=== PATIENT | female | born 1995 | race Caucasian/White ===

== ENCOUNTER 2020-10-28 17:29 | Emergency (ER) | payer OTHER, SELFPAY | END 2020-10-28 19:36 | disposition left against medical advice (07) | PROVIDERS: Emergency Provider Emergency Medicine | DX: N93.9 Abnormal uterine and vaginal bleeding, unspecified (principal) ==

== ENCOUNTER 2020-11-04 21:18 | Emergency (ER) | payer OTHER, SELFPAY ==
--- NOTE | ~2020-11-04 | US_ITS ---
EXAMINATION: ULTRASOUND PELVIC, COMPLETE CLINICAL INFORMATION: Status post one week ago. Now with vaginal bleeding.. Concern for retained products of conception. COMPARISON: None. TECHNIQUE: Transabdominal imaging. Color Doppler exam performed. No spectral Doppler performed. FINDINGS: UTERUS: There is mixed echogenic material within the endometrial cavity at the lower uterine segment. On color Doppler there is no vascular flow within this material. This is therefore likely clot and not retained products of conception. Uterus measures 12.7 x 4.1 x 7.5 cm. Uterus is retroverted.. ADNEXA: Ovarian vascularity:Vascularity demonstrated in the ovaries bilaterally with color Doppler only. Right Ovary: Unremarkable. 2.6 x 1.4 x 1.1 cm. Volume 2 mL Left Ovary: Unremarkable. 2.7 x 2.5 x 2 cm. Volume 7 mL Cul-de-sac: No Fluid US/US OB limited IMPRESSION: Mixed echogenic material in the lower uterine segment endometrial cavity. This demonstrates no vascular flow and is therefore likely due to clot and not retained products of conception.
[2020-11-04 21:26] VITALS: BP 110/69; BP 113/68; PULSE 76; PULSE 84; RESP 15; TEMP 37.3; O2SAT 100; BMI 25.4
--- NOTE | 2020-11-04 21:58 | ED.FEMALEGU ---
HPI - Female Genitourinary General Chief complaint: Abdominal Pain Stated complaint: ABD PAIN,VAG BLEED S/P MEDICAL 5 DAYS AGO Time Seen by Provider: 11/04/20 21:57 Source: patient Mode of arrival: ambulatory Limitations: no limitations History of Present Illness HPI Narrative: Patient status post MTP for 10 weeks of 5 days ago complaining of lower abdominal pain and increase vaginal bleeding for last 5 hours patient been changing pad almost every hour passing clots with lower abdominal cramps Related Data Previous Rx's Medication Instructions Recorded ferrous sulfate 325 mg PO DAILY #30 tab 11/04/20 tranexamic acid 1,300 mg PO BID #8 tab 11/04/20 Allergies Allergy/AdvReac Type Severity Reaction Status Date / Time No Known Allergies Allergy Unverified 04/02/20 16:28 [No Known Allergies*] Review of Systems Review of Systems: Constitutional : No Weight loss, No Fever, No Chills ENT/Mouth : No sore throat, No Rhinorrhea Eyes: No Eye Pain, No Swelling Cardiovascular : No Chest Pain, no palpitations Respiratory : No Cough, No Sputum, no shortness of breath Gastrointestinal : no Nausea, No Vomiting, No Diarrhea, +abdominal Pain, no black stools Genitourinary : No Dysuria, No Urinary Frequency Musculoskeletal : No joint pain, No Myalgias, No Joint Swelling Skin : No Skin Lesions, No rash Neuro : No Weakness, No Numbness, No Dizziness, No Headache Psych : No Anxiety/Panic, No Depression Heme/Lymph: No Bruising, No Lymphadenopathy Endocrine : No Polyuria, No Polydipsia All other systems reviewed and are negative PMFSH Past Medical History Medical History delivery delivered Surgical History [place] teeth removed Social History Social History Smoking Status: Current every day smoker Use of substances other than those prescribed or required for medical reasons: No Advance Directives: No Advance Directives Information Provided: Yes Physical Exam Vital Signs: Vital Signs: Last Vital Signs Temp 98.9 F 11/04/20 22:55 Pulse 91 11/04/20 22:55 Resp 18 11/04/20 22:55 BP 106/68 11/04/20 22:55 Pulse Ox 99 11/04/20 22:55 Body Mass Index 25.4 Appearance: Alert. Oriented X3. No acute distress. Eyes: Pupils equal, round and reactive to light. ENT: Pharynx normal. Neck: Normal inspection. Neck supple. CVS: Normal heart rate and rhythm. Pulses normal. Respiratory: No respiratory distress. Breath sounds normal. Abdomen: Soft, mild tenderness suprapubic area no rebound tenderness or guarding Bowel sounds are present, no mass palpable, no CVA tenderness Skin: Skin warm and dry. Normal skin color. Normal skin turgor. Extremities: No lower extremity edema. Neuro: Oriented X 3. No motor deficit. No sensory deficit. MDM - Female Genitourinary MDM Narrative Medical decision making narrative: Patient with MTP with vaginal bleeding ultrasound without any retained products of conception bleeding has slowed down now will advised the patient to follow up with patient transport orderly Lab Data Attestation: I reviewed the patient's lab results. Result diagrams: 11/04/20 22:43 11/04/20 22:43 Labs: Lab Results 11/04/20 11/04/20 Range/Units 22:43 22:43 WBC 13.4 H (4.8-10.8) X10*3/uL RBC 3.03 L (4.20-5.50) X10*6/uL Hgb 8.9 L (12.0-16.0) g/dl Hct 27.5 L (37-47) % MCV 90.8 (80-98) fL MCH 29.4 (27.0-33.0) pg MCHC 32.4 (31.0-35.0) g/dl RDW 14.4 (11.0-16.0) % Plt Count 360 (160-400) X10*3/uL MPV 9.7 (9.4-12.3) fL Immature Gran % (Auto) 0.3 (0.0-0.4) % Neut % (Auto) 83.3 H (45-73) % Lymph % (Auto) 11.5 L (20-40) % [place]ferro % (Auto) 4.0 (2-11) % Eos % (Auto) 0.7 (0-4) % Baso % (Auto) 0.2 (0-2) % Lymph # (Auto) 1.5 (1.2-4.9) X10*3/uL [place]ferro # (Auto) 0.5 (0.1-1.2) X10*3/uL Eos # (Auto) 0.1 (0.0-0.4) X10*3/uL Baso # (Auto) 0.0 (0.0-0.2) X10*3/uL Abs Immat Gran (auto) 0.04 H (0.00-0.03) X10*3/uL Absolute Neuts (auto) 11.2 H (2.0-8.3) X10*3/uL Absolute Nucleated RBC 0.000 (0.0-0.012) X10*3/uL Nucleated RBC % (auto) 0.0 (0.0-0.2) /100WBC Sodium 137 (135-145) mmol/L Potassium 4.3 (3.3-5.1) mmol/L Chloride 107 (96-108) mmol/L Carbon Dioxide 23 (22-29) mmol/L Anion Gap 11 L (12-20) BUN 17 H (9-16) mg/dL Creatinine 0.68 (0.5-1.4) mg/dL Estim Creat Clear Calc 101.6 Estimated GFR > 60 Random Glucose 97 (60-115) mg/dL Calcium 9.1 (8.4-10.2) mg/dL Imaging Data US - abdomen: Radiologist's impression: Patient: Praveen Morgan#: [id number]: 1995Acct:[id number]/Sex: 25 / FADM Date: 11/04/20Loc: [address]: Ordering Physician: Bairon Lowery MD Date of Service: 11/04/20 Procedure(s): US OB limited Accession Number(s): [id number] cc: Bairon Lowery MD~ EXAMINATION: ULTRASOUND PELVIC, COMPLETE CLINICAL INFORMATION: Status post one week ago. Now with vaginal bleeding.. Concern for retained products of conception. COMPARISON: None. TECHNIQUE: Transabdominal imaging. Color Doppler exam performed. No spectral Doppler performed. FINDINGS: UTERUS: There is mixed echogenic material within the endometrial cavity at the lower uterine segment. On color Doppler there is no vascular flow within this material. This is therefore likely clot and not retained products of conception. Uterus measures 12.7 x 4.1 x 7.5 cm. Uterus is retroverted.. ADNEXA: Ovarian vascularity:Vascularity demonstrated in the ovaries bilaterally with color Doppler only. Right Ovary: Unremarkable. 2.6 x 1.4 x 1.1 cm. Volume 2 mL Left Ovary: Unremarkable. 2.7 x 2.5 x 2 cm. Volume 7 mL Cul-de-sac: No Fluid US/US OB limited IMPRESSION: Mixed echogenic material in the lower uterine segment endometrial cavity. This demonstrates no vascular flow and is therefore likely due to clot and not retained products of conception. Discharge Plan Discharge Clinical Impression: Complete miscarriage Patient Disposition: Home, Self-Care Instructions: Miscarriage (ED), Anemia (ED) Additional Instructions: Ultrasound shows only blood clots. Take medication for increased bleeding as prescribed. Iron tablets for anemia. , Motrin for pain Follow-up with patient transport orderly if bleeding continues Prescriptions: New tranexamic acid 650 mg tablet 1,300 mg PO BID Qty: 8 RF: 0 ferrous sulfate 325 mg (65 mg iron) tablet 325 mg PO DAILY Qty: 30 RF: 0 Referrals: Gopi Bryan MD [Physician] - 1 week
[2020-11-04 22:49] LABS: MANUAL DIFF FLAG NO
[2020-11-04 22:50] LABS: Basophils Percent Auto 0.2 % (0-2); Eosinophils Absolute Auto 0.1 X10*3/uL (0.0-0.4); Eosinophils Percent Auto 0.7 % (0-4); Hematocrit 27.5 % (37-47); Hemoglobin 8.9 g/dl (12.0-16.0); Imm Gran Abs Auto 0.04 X10*3/uL (0.00-0.03); Imm Gran Pct Auto 0.3 % (0.0-0.4); Lymphocytes Absolute Auto 1.5 X10*3/uL (1.2-4.9); Lymphocytes Percent Auto 11.5 % (20-40); Mean Corpuscular HGB Conc 32.4 g/dl (31.0-35.0); Mean Corpuscular Hemoglobin 29.4 pg (27.0-33.0); Mean Corpuscular Volume 90.8 fL (80-98); Mean Platelet Volume 9.7 fL (9.4-12.3); Monocytes Absolute Auto 0.5 X10*3/uL (0.1-1.2); Neutrophils Absolute Auto 11.2 X10*3/uL (2.0-8.3); Neutrophils Percent Auto 83.3 % (45-73); Platelet Count 360 X10*3/uL (160-400); Red Blood Count 3.03 X10*6/uL (4.20-5.50); Red Cell Distribution Width 14.4 % (11.0-16.0); White Blood Count 13.4 X10*3/uL (4.8-10.8)
[2020-11-04 22:55] VITALS: BP 106/68; PULSE 91; RESP 18; TEMP 37.2; O2SAT 99
[2020-11-04 23:17] LABS: Anion Gap 11 (12-20); Blood Urea Nitrogen 17 mg/dL (9-16); Calcium 9.1 mg/dL (8.4-10.2); Carbon Dioxide 23 mmol/L (22-29); Chloride 107 mmol/L (96-108); Creatinine Clr Calc Pharmacy 101.6; Estimated Glomerular Filt Rate > 60; Glucose Random 97 mg/dL (60-115); Potassium 4.3 mmol/L (3.3-5.1); Sodium 137 mmol/L (135-145)
== END 2020-11-05 00:15 | disposition home or self-care (01) ==
PROVIDERS: Emergency Provider Internal Medicine; PCP Internal Medicine
DX: O03.9 Complete or unspecified spontaneous abortion without complication (principal); R10.2 Pelvic and perineal pain; N93.9 Abnormal uterine and vaginal bleeding, unspecified; Z79.899 Other long term (current) drug therapy; F17.200 Nicotine dependence, unspecified, uncomplicated; Z71.6 Tobacco abuse counseling
CPT/HCPCS: 36415; 76815; 80048; 85025; 99284

== ENCOUNTER → 2021-03-03 11:52 | Outpatient (BNVA) | payer OTHER, SELFPAY | PROVIDERS: Visit Provider Advanced Practice Midwife ==

== ENCOUNTER → 2021-04-06 09:30 | Outpatient (BNVA) | payer SELFPAY | PROVIDERS: Visit Provider Physician Assistant Medical | DX: Z02.1 Encounter for pre-employment examination (principal) ==

== ENCOUNTER 2021-08-28 08:16 | Outpatient (REF) | payer OTHER, SELFPAY ==
[2021-08-28 08:30] LABS: MANUAL DIFF FLAG NO
[2021-08-28 09:54] LABS: Basophils Percent Auto 0.2 % (0-2); Eosinophils Absolute Auto 0.2 X10*3/uL (0.0-0.4); Eosinophils Percent Auto 1.6 % (0-4); Hematocrit 40.6 % (37.0-47.0); Hemoglobin 13.1 g/dl (12.0-16.0); Imm Gran Abs Auto 0.03 X10*3/uL (0.00-0.03); Imm Gran Pct Auto 0.3 % (0.0-0.4); Lymphocytes Absolute Auto 2.1 X10*3/uL (1.2-4.9); Lymphocytes Percent Auto 22.8 % (20-40); Mean Corpuscular HGB Conc 32.3 g/dl (31.0-35.0); Mean Corpuscular Hemoglobin 27.6 pg (27.0-33.0); Mean Corpuscular Volume 85.5 fL (80.0-98.0); Mean Platelet Volume 10.4 fL (9.4-12.3); Monocytes Absolute Auto 0.8 X10*3/uL (0.1-1.2); Monocytes Percent Auto 8.3 % (2-11); Neutrophils Absolute Auto 6.1 x10*3/uL (2.0-8.3); Neutrophils Percent Auto 66.8 % (45-73); Platelet Count 328 X10*3/uL (160-400); Red Blood Count 4.75 X10*6/uL (4.20-5.50); Red Cell Distribution Width 15.9 % (11.0-16.0); White Blood Count 9.2 X10*3/uL (4.8-10.8)
[2021-08-28 10:19] LABS: Alanine Aminotransferase 7 U/L (0-31); Albumin Level 4.2 g/dL (3.5-5.0); Alkaline Phosphatase 61 U/L (39-117); Anion Gap 12 (12-20); Aspartate Amino Transferase 14 U/L (5-31); Bilirubin Total 0.4 mg/dL (0.0-1.0); Blood Urea Nitrogen 9 mg/dL (9-16); Calcium 9.5 mg/dL (8.4-10.2); Carbon Dioxide 24 mmol/L (22-29); Chloride 107 mmol/L (96-108); Cholesterol 159 mg/dL; Estimated Glomerular Filt Rate > 60; Glucose Fasting 85 mg/dL (60-99); HDL Cholesterol 43 mg/dL; Iron 67 mcg/dL (30-160); LDL Cholesterol Calculated 95 mg/dl; Percent Iron Saturation 16 % (15-50); Potassium 4.5 mmol/L (3.3-5.1); Sodium 138 mmol/L (135-145); Total Iron Binding Capacity 427 mcg/dL (228-428); Total Protein 6.8 g/dL (6.5-8.0); Triglycerides 108 mg/dL; Unsaturated Iron Binding 360 ug/dL
[2021-08-28 10:20] LABS: TSH reflex Free T4 1.22 uIU/mL (0.32-4.0)
== END 2021-08-28 08:17 | disposition home or self-care (01) ==
LOC: HO.LAB 08:16
PROVIDERS: PCP Internal Medicine; Visit Provider Nurse Practitioner Family
DX: O99.345 Other mental disorders complicating the puerperium (principal); F53.0 Postpartum depression; Z76.89 Persons encountering health services in other specified circumstances
CPT/HCPCS: 36415; 80053; 80061; 83540; 84443; 85025